=== PATIENT | female | born 1960 | race Caucasian/White ===

== ENCOUNTER → 2017-06-30 15:24 | Outpatient (CLI) | payer BC ==
[~2017-06-30 15:24] MED LIST: DURICEF500 MG PO; HYDROCODON-ACE1 EAC7 PO; LISINOPRIL-HCTZ1 T13 PO; TOPAMAX50 MG PO; VITAMIN D2000 UNIT PO
[2017-07-25 08:37] VITALS: BMI 27.8
== END | disposition home or self-care (01) ==
LOC: D.MRI 15:24
DX: R22.31 Localized swelling, mass and lump, right upper limb (principal)

== ENCOUNTER 2017-07-25 05:42 | Day surgery (SDC) | payer BC ==
[2017-07-24 09:25] LABS: CALC OSMOLALITY 284 mosm/kg (275-300); CALCIUM 9.6 mg/dL (8.5-10.1); CARBON DIOXIDE 28.6 mmol/L (21.0-32.0); CHLORIDE - SERUM 104 mmol/L (98-107); CREATININE - SERUM 0.7 mg/dL (0.6-1.3); GLUCOSE 131 mg/dL (74-106); POTASSIUM - SERUM 3.5 mmol/L (3.5-5.1); SODIUM 142 mmol/L (136-145); UREA NITROGEN 13 mg/dL (7-18); eGFR NON AFRICAN AMERICAN > 90 mL/min (90-120)
[2017-07-24 09:57] LABS: HEMATOCRIT 41.9 % (36.0-48.0); HEMOGLOBIN 14.3 g/dL (12-16); MCH 30.8 pg (26.0-34.0); MCHC 34.1 g/dL (31.0-37.0); MCV 90.1 fL (80.0-100.0); MEAN PLATELET VOLUME 9.6 fL (7.4-10.4); RBC 4.65 10x6/uL (4.00-5.40); RDW 12.5 % (11.5-14.5); WBC 5.3 10x3/uL (4.8-10.8)
[~2017-07-25] VITALS: Ht 157.5 cm; Wt 68.9 kg
--- NOTE | ~2017-07-25 | OP ---
PATIENT NAME: OLGA SON MEDICAL RECORD: [id number] :56 LOCATION:D.OPS ADMISSION DATE: SURGEON: PRADEEP MARTÍNEZ DO DATE OF OPERATION: 07/25/2017 PROCEDURE PERFORMED: Excision of mass, right volar thumb. PREOPERATIVE DIAGNOSIS: Right thumb volar mass. POSTOPERATIVE DIAGNOSIS: Right thumb volar mass. INDICATIONS: Ms. Son is a right hand dominant 56-year-old female who has had an enlarging mass over the past 3 years on her right volar thumb. She has gotten to the point where it does bother her with handwriting and her daily activities. She wanted something done about it. I saw her in the office and an MRI was done to try to identify what it was through imaging and it was unknown. Due to the fact that it bothered her and not knowing a specific diagnosis, she was wanting it removed, so she was sent up for surgery. DESCRIPTION OF PROCEDURE: The patient was given a block in the preoperative area. She did not want to be put to sleep, so a block was done by anesthesia. She was then taken to the operative suite, laid in the supine position. The right upper extremity was prepped and draped in sterile fashion. Once this was done, a timeout was performed; everyone was in agreement with the correct side, site, and patient. A finger tourniquet was then used at the base of the thumb and then an oblique incision was made over the distal tip of the volar aspect of the right thumb. The patient had been given antibiotics preoperatively. A skin incision was made and careful dissection was made down with a knife. A large lipoma looking mass was encountered. It was grabbed with a pickup and then pulled and the skin was retracted around it with a Sharee. As this was done, the mass came out quite easily. It was well circumscribed and appeared to be a lipoma; however, it was sent to pathology for identification. At that time, due to size of the mass, she had excess skin over the volar aspect of her thumb and this was trimmed out curvilinearly following the incision in order to remove some of the excess skin and the excess skin was sent to pathology as well. Then, the tourniquet was taken off at 9 minutes the finger. Any bleeding was then coagulated with bipolar. Once this was achieved, the skin was closed with 5-0 nylon in a running stitch. Then Adaptic and 4 x 4s were placed over that and the tube gauze was placed over the thumb and tied around the wrist securing into place. COMPLICATIONS: None. BLOOD LOSS: Minimal. 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 [address] [place] [address]
[~2017-07-25 05:42] MED LIST changes: -DURICEF500 MG PO; -HYDROCODON-ACE1 EAC7 PO
[2017-07-25 08:37] VITALS: BP 133/75; Ht 157.5 cm; Wt 68.9 kg
[2017-07-25] MEDS ORDERED: DURICEF500 MG PO (10:37)
[2017-07-25] MEDS ORDERED: HYDROCODON-ACE1 EAC7 PO (10:37)
== END 2017-07-25 11:30 | disposition home or self-care (01) ==
LOC: D.OPS 05:42 → D.PAN 11:45
PROVIDERS: Anesthesiology
DX: D17.39 Benign lipomatous neoplasm of skin and subcutaneous tissue of other sites (principal); Z01.812 Encounter for preprocedural laboratory examination

== ENCOUNTER 2020-09-13 13:30 | Outpatient (CLI) | payer OTHER ==
[2017-07-25 08:37] VITALS: BMI 27.8
[~2020-09-13 13:30] MED LIST changes: +DURICEF500 MG PO; +HYDROCODON-ACE1 EAC7 PO
== END 2020-09-13 14:00 | disposition home or self-care (01) ==
LOC: D.MAMMO 13:30
PROVIDERS: ATTEND Nurse Practitioner Family
DX: Z12.31 Encounter for screening mammogram for malignant neoplasm of breast (principal)